=== PATIENT | male | born 1940 | race Caucasian/White ===

== ENCOUNTER 2017-01-22 09:50 | Day surgery (SDC) | payer BC, OTHER ==
[~2017-01-22 09:50] MED LIST: Lactated Ringers 1,000 ML IV SCH
--- NOTE | 2017-01-22 10:24 | PCM.PREANE ---
Preanesthetic Assessment - Anesthesia/Transfusion/Family Hx Anesthesia History: Prior Anesthesia Without Reaction Type of Anesthesia Reaction: Excessive Nausea/Vomiting Family History of Anesthesia Reaction: No Transfusion History: No Prior Transfusion(s) - Review of Systems General: No Symptoms Pulmonary: No Symptoms Cardiovascular: No Symptoms Neurological: No Symptoms Other: Reports: None - Physical Assessment NPO Status Date: 01/21/17 Height: 1.96 m Weight: 109.769 kg ASA Class: 3 Mental Status: Alert & Oriented x3 Airway Class: Mallampati = 1 Dentition: Reports: Bridge (central maxilary) ROM/Head Extension: Full Lungs: Clear to Auscultation, Normal Respiratory Effort Cardiovascular: Murmurs - Lab Values: Laboratory Last Values POC Glucose 120 mg/dL (60-110) H 01/22/17 10:13 - Allergies Allergies/Adverse Reactions: Allergies Allergy/AdvReac Type Severity Reaction Status Date / Time No Known Allergies Allergy Verified 01/20/17 11:08 - Acknowledgements Anesthesia Type Planned: MAC Pt an Appropriate Candidate for the Planned Anesthesia: Yes Alternatives and Risks of Anesthesia Discussed w Pt/Guardian: Yes Pt/Guardian Understands and Agrees with Anesthesia Plan: Yes Additional Comments: has mod MR, reentrant tachyarrythmia controlled with metopralol (last dose this am), has GERD, HTN, DM2, No symptoms of coronary disease, has had no heart cath , did have apical hypomobility 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 PreAnesthesia Questionnaire Other HEENT History: wears glasses, has upper permanent partial denture Cardiovascular History: Reports: Arrhythmia, CAD, Heart Murmur, High Cholesterol Other Cardiovascular History: moderate mitral valve regurgitation, hx of AVNRT Gastrointestinal History: Reports: Diverticulosis, GERD Genitourinary History: Reports: BPH Other Genitourinary History: just finished treatment for prostate infection Musculoskeletal History: Reports: Arthritis, Back Pain, Chronic, Fracture Other Musculoskeletal History: hx of fx ankle Endocrine/Metabolic History: Reports: Other (See Below) Other Endocrine/Metabolic History: states "pre-diabetic" Oncologic (Cancer) History: Reports: Basal Cell Carcinoma Other Oncologic History: skin cancer on left leg Dermatologic History: Reports: Other (See Below) Other Dermatologic History: currently taking antibiotics for "inflamation" on leg - Past Surgical History HEENT Surgical History: Reports: Tonsillectomy Cardiovascular Surgical History: Reports: None GI Surgical History: Reports: Colonoscopy Male Surgical History: Reports: Prostatectomy, Vasectomy, Other (See Below) Other Male Surgeries/Procedures: HX of "electrical" prostate surgery, hx of left orchiectomy (undecended) Musculoskeletal Surgical History: Reports: None - SUBSTANCE USE Smoking Status *Q: Former Smoker Tobacco Use Within Last Twelve Months: No Days Per Week of Alcohol Use: 0 Recreational Drug Use History: No - HOME MEDS Home Medications: Home Meds Aspirin [Keily Chewable] 81 mg PO DAILY 10/11/13 [History] Cholecalciferol (Vitamin D3) [Vitamin D] 1,000 unit PO DAILY 10/11/13 [History] Finasteride [Proscar] 5 mg PO DAILY 10/11/13 [History] Pantoprazole [Protonix] 40 mg PO DAILY 10/11/13 [History] atorvaSTATin [Lipitor] 20 mg PO DAILY 10/11/13 [History] Cephalexin 500 mg PO TID 01/20/17 [History] Metoprolol Tartrate 25 mg PO BID 01/20/17 [History] - CURRENT (IN HOUSE) MEDS Current Meds: Current Medications Lactated Ringer's (Ringers, Lactated) 1,000 mls @ 125 mls/hr IV ASDIRECTED [facility] Last Admin: 01/22/17 10:20 Dose: 125 mls/hr
[2017-01-22] MEDS ORDERED: Midazolam 1 MG/ML 2 ML SDV ONE (12:07)
[2017-01-22] MEDS ORDERED: Propofol 200 MG/20 ML SDV ONE ×2 (12:07→12:29)
--- NOTE | 2017-01-22 13:03 | PCM.OPNOTE ---
- General Post-Op/Procedure Note Date of Surgery/Procedure: 01/22/17 Operative Procedure(s): Colonoscopy with cold ascending and descending colon, polypectomies Pre Op Diagnosis: Change in bowel habits. Unexplained weight loss. Post-Op Diagnosis: Ascending and descending colon polyps. Sigmoid diverticulosis. Anesthesia Technique: MAC (ASA II) Primary Surgeon: Jonatan Mauro Clutch Inspector: Amarilis Goyal Condition: Good Free Text/Narrative:: Dictation [id number] CPT CODE 60966
[2017-01-22] MEDS ORDERED: Lactated Ringers 1,000 ML IV SCH (13:15)
--- NOTE | 2017-01-22 13:20 | PCM.POSTAN ---
POST ANESTHESIA ASSESSMENT - MENTAL STATUS Mental Status: Alert, Oriented - RESPIRATORY Respiratory Status: Respiratory Rate WNL, Airway Patent, O2 Saturation Stable - CARDIOVASCULAR CV Status: Pulse Rate WNL, Blood Pressure Stable - GASTROINTESTINAL GI Status: No Symptoms - PAIN Pain Score: 0 - POST OP HYDRATION Hydration Status: Adequate & Stable
[2017-01-22 14:38] VITALS: BP 136/69
--- NOTE | 2017-01-22 14:57 | PCM48HPAN ---
Post Anesthesia Note - EVALUATION WITHIN 48HRS OF ANESTHETIC Vital Signs in Normal Range: Yes Patient Participated in Evaluation: Yes Respiratory Function Stable: Yes Airway Patent: Yes Cardiovascular Function Stable: Yes Hydration Status Stable: Yes Pain Control Satisfactory: Yes Nausea and Vomiting Control Satisfactory: Yes Mental Status Recovered: Yes
--- NOTE | 2017-01-25 14:52 | OR ---
SURGEON: Jonatan Mauro M.D. DATE OF PROCEDURE: 01/22/2017 OPERATION PERFORMED: Colonoscopy with cold descending and ascending colon polypectomy. ANESTHESIA: MAC. ASA CLASSIFICATION: II. PREOPERATIVE DIAGNOSES: Change in bowel habits, unexplained weight loss. POSTOPERATIVE DIAGNOSES: Sigmoid diverticulosis, descending colon polyp, ascending colon polyp. DESCRIPTION OF PROCEDURE: The patient was taken to the endoscopy room and positioned on the endoscopy table in the left lateral decubitus position. Time-out was called for appropriate identification the patient and procedure. Monitored anesthesia care was provided. The colonoscope was inserted into the rectum and advanced with great difficulty to the cecum, where I was able to retroflex the colonoscope and visualize the ascending colon from below. The colonoscope was then straightened and slowly withdrawn. One polyp was encountered in the ascending colon and removed with the cold biopsy forceps. The remainder of the ascending colon, hepatic flexure, transverse colon, splenic flexure showed no tumors, polyps, diverticula, or angiodysplastic changes. Descending colon did demonstrate another polyp that was removed with the cold biopsy forceps. Sigmoid colon demonstrates severe diverticular change. No stricture, spasm, or bleeding was noted. No sigmoid polyps were encountered. The colonoscope was withdrawn to the rectum and retroflexed to visualize the anal orifice from above. No tumors or polyps were seen and there were no acute hemorrhoidal changes. The colonoscope was then straightened, the rectum aspirated, and the colonoscope removed. The patient tolerated the procedure well and was taken to recovery room in stable condition. VI / ROLANDO /[id number]
== END 2017-01-22 13:45 | disposition home or self-care (01) ==
LOC: MW.SDS 09:50
PROVIDERS: ATTEND Surgery
DX: D12.4 Benign neoplasm of descending colon (principal); D12.2 Benign neoplasm of ascending colon; K57.30 Diverticulosis of large intestine without perforation or abscess without bleeding; N40.0 Benign prostatic hyperplasia without lower urinary tract symptoms; I25.10 Atherosclerotic heart disease of native coronary artery without angina pectoris; K21.9 Gastro-esophageal reflux disease without esophagitis; I10 Essential (primary) hypertension; E78.00 Pure hypercholesterolemia, unspecified; E11.9 Type 2 diabetes mellitus without complications; Z79.82 Long term (current) use of aspirin; Z79.899 Other long term (current) drug therapy; Z98.890 Other specified postprocedural states; Z98.52 Vasectomy status; Z87.891 Personal history of nicotine dependence
CPT/HCPCS: 45380; 82962; 88305; J2250; J7120; 00810; J2704

== ENCOUNTER 2017-09-04 14:20 | Emergency (ER) | payer BC, OTHER ==
[2017-09-04 14:33] VITALS: BP 157/78
--- NOTE | 2017-09-04 14:56 | EDM.PDOC ---
ED HPI GENERAL MEDICAL PROBLEM - General Chief Complaint: Eye Problems Stated Complaint: VISION PROBLEMS WITH LT EYE Time Seen by Provider: 09/04/17 14:48 Source of Information: Reports: Patient History Limitations: Reports: No Limitations - History of Present Illness INITIAL COMMENTS - FREE TEXT/NARRATIVE: HISTORY AND PHYSICAL: []77-year-old gentleman presenting with history of blurring vision to the left eye and difficulty with driving History of Present Illness: []Now complaining of pain behind his right thigh which has been intermittent Review of Systems: As per history of present illness and below otherwise all systems reviewed and negative. Past medical history: As per history of present illness and as reviewed below otherwise noncontributory. Surgical history: As per history of present illness and as reviewed below otherwise noncontributory. Social history: No reported history of drug or alcohol abuse. Family history: As per history of present illness and as reviewed below otherwise noncontributory. Physical exam: Alert and oriented gentleman accompanied by his answering questions appropriately in full sentences without any shortness of breath.No neurological deficits were noted. PERRLA HEENT: Atraumatic, normocehpalic, pupils reactive, negative for conjunctival pallor or scleral icterus, mucous membranes moist, throat clear, neck supple, nontender, trachea midline. Lungs: Clear to auscultation, breath sounds equal bilaterally, chest non tender. Heart: S1S2, regular, negative for clicks, rubs, or JVD. Abdomen: Soft, nondistended, nontender. Negative for masses or hepatossplenmegaly. Negative for costovertebral tenderness. Pelvis: Stable nontender. Genitourinary: Deferred. Rectal: Deferred Extremities: Atraumatic, negative for cords or calf pain. Neurovascular unremarkable. Neuro: Awake, alert, oriented. Cranial nerves II through XII unremarkable. Cerebellum unremarkable. Motor and sensory unremarkable throughout. Exam nonfocal. Discussed the results of the head CT with patient and gross abnormalities have been noted on his examination or testing completed here Increased vision noted 2 left eye on Snellen examellen 20/70 Discussed this case with Dr. Blaine Delgado who is in agreement that this may wait until Wednesday(2 days)If this is not improved by that time he needs to be seen by his brake engineer or supervisor nuclear medicine Diagnostics: [head CT] Therapeutics: [] Impression: [Transient visual changes] Plan: []Discharged home Follow up with your PCP/Eye Dr. Definitive disposition and diagnosis as appropriate pending reevaluation and review of above. Onset: Today, Sudden Duration: Hour(s): Location: Reports: Head R eye Pain Score (Numeric/FACES): 3 - Related Data Allergies Allergy/AdvReac Type Severity Reaction Status Date / Time No Known Allergies Allergy Verified 09/04/17 14:33 Home Meds: Home Meds Finasteride [Proscar] 5 mg PO DAILY 10/11/13 [History] Pantoprazole [Protonix] 40 mg PO DAILY 10/11/13 [History] atorvaSTATin [Lipitor] 20 mg PO DAILY 10/11/13 [History] Metoprolol Tartrate 25 mg PO BID 01/20/17 [History] Past Medical History Other HEENT History: wears glasses, has upper permanent partial denture Cardiovascular History: Reports: Arrhythmia, CAD, Heart Murmur, High Cholesterol Other Cardiovascular History: moderate mitral valve regurgitation, hx of AVNRT Gastrointestinal History: Reports: Diverticulosis, GERD Genitourinary History: Reports: BPH Other Genitourinary History: just finished treatment for prostate infection Musculoskeletal History: Reports: Arthritis, Back Pain, Chronic, Fracture Other Musculoskeletal History: hx of fx ankle Endocrine/Metabolic History: Reports: Other (See Below) Other Endocrine/Metabolic History: states "pre-diabetic" Oncologic (Cancer) History: Reports: Basal Cell Carcinoma Other Oncologic History: skin cancer on left leg Dermatologic History: Reports: Other (See Below) Other Dermatologic History: currently taking antibiotics for "inflamation" on leg - Past Surgical History HEENT Surgical History: Reports: Tonsillectomy Cardiovascular Surgical History: Reports: None GI Surgical History: Reports: Colonoscopy Male Surgical History: Reports: Prostatectomy, Vasectomy, Other (See Below) Other Male Surgeries/Procedures: HX of "electrical" prostate surgery, hx of left orchiectomy (undecended) Musculoskeletal Surgical History: Reports: None Social & Family History - Family History Family Medical History: Noncontributory - Tobacco Use Smoking Status *Q: Never Smoker Years of Tobacco use: 25 Second Hand Smoke Exposure: No - Caffeine Use Caffeine Use: Reports: Coffee, Tea - Alcohol Use Days Per Week of Alcohol Use: 7 Number of Drinks Per Day: 2 Total Drinks Per Week: 14 - Recreational Drug Use Recreational Drug Use: No Drug Use in Last 12 Months: No ED ROS GENERAL - Review of Systems Review Of Systems: ROS reveals no pertinent complaints other than HPI. ED EXAM GENERAL W FULL EYE - Physical Exam Exam: See Below (see dictation) Course - Vital Signs Last Recorded V/S: Last Vital Signs Temp 36.4 C 09/04/17 14:30 Pulse 65 09/04/17 14:30 Resp 18 09/04/17 14:30 BP 157/78 H 09/04/17 14:30 Pulse Ox 96 09/04/17 14:30 Departure - Departure Time of Disposition: 16:04 Disposition: Home, Self-Care 01 Condition: Good Clinical Impression: Blurring of vision - Discharge Information Referrals: Dwight Joshi MD [Primary Care Provider] - Additional Instructions: The following information is given to patients seen in the emergency department who are being discharged to home. This information is to outline your options for follow-up care. We provide all patients seen in our emergency department with a follow-up referral. The need for follow-up, as well as the timing and circumstances, are variable depending upon the specifics of your emergency department visit. If you don't have a primary care physician on staff, we will provide you with a referral. We always advise you to contact your personal physician following an emergency department visit to inform them of the circumstance of the visit and for follow-up with them and/or the need for any referrals to a consulting specialist. The emergency department will also refer you to a specialist when appropriate. This referral assures that you have the opportunity for followup care with a specialist. All of these measure are taken in an effort to provide you with optimal care, which includes your followup. Under all circumstances we always encourage you to contact your private physician who remains a resource for coordinating your care. When calling for followup care, please make the office aware that this follow-up is from your recent emergency room visit. If for any reason you are refused follow-up, please contact the [facility] emergency department at and asked to speak to the emergency department charge nurse. Left with your brake engineer/supervisor nuclear medicine on Wednesday if not improved Use liquid tears available [id number] Return to the emergency room should you have any change in symptomology as discussed and directed
--- NOTE | 2017-09-06 11:40 | CT ---
EXAM DATE: 09/04/17 PATIENT'S AGE: 77 Patient: PETRA PRUITT Facility: [place], [place] Site . Site : [id number] Study: CT Head [id number]/[id number] 3:16:04 PM Ordering Physician: Doctor Álvarez Final Report: HISTORY: Left-sided headache, blurry vision. TECHNIQUE: Noncontrast head CT. COMPARISON: MRI 04/08/2009. Head CT 04/05/2009. FINDINGS: Increased moderate generalized volume loss. There is no acute ischemic infarct or acute intracranial hemorrhage. No mass effect or midline shift. No hydrocephalus. No acute loss of callejas-white differentiation. The mastoid air cells are clear on the right. There is opacification of a few posterior inferior mastoid air cells on the left. Mucosal thickening right maxillary sinus. Opacification of the included portion of the left maxillary sinus. No skull fracture. IMPRESSION: 1. Progressive moderate generalized volume loss. 2. No acute intracranial hemorrhage or acute ischemic infarct. Dictated by Owen Wadsworth MD @ 09/04/2017 3:29:07 PM Please note that all CT scans at this facility use dose modulation, iterative reconstruction, and/or weight-based dosing when appropriate to reduce radiation dose to as low as reasonably achievable. Dictated by: Owen Wadsworth MD @ 09/04/2017 15:29:30 (Electronic Signature) Report Signed by Proxy. [facility]
== END 2017-09-04 16:35 | disposition home or self-care (01) ==
LOC: MW.ED 14:20
DX: H53.8 Other visual disturbances (principal); E78.00 Pure hypercholesterolemia, unspecified; K21.9 Gastro-esophageal reflux disease without esophagitis; M19.90 Unspecified osteoarthritis, unspecified site; Z79.899 Other long term (current) drug therapy
CPT/HCPCS: 70450; 70450-26; 82962; 99284-25

== ENCOUNTER 2020-11-01 18:40 | Emergency (ER) | payer BC, OTHER ==
--- NOTE | 2020-11-01 19:31 | EDM.PDOC ---
ED HPI GENERAL MEDICAL PROBLEM - General Chief Complaint: Upper Extremity Injury/Pain Stated Complaint: FELL AT [facility] Time Seen by Provider: 11/01/20 19:05 Source of Information: Reports: Patient History Limitations: Reports: No Limitations - History of Present Illness INITIAL COMMENTS - FREE TEXT/NARRATIVE: 80M PMHx anticoagulant use presents for fall. Patient tripped over boxes on ground at grocery store. He landed on his L knee and arm. He has ambulated after fall but notes pain and swelling in L wrist and knee. He also notes a toenail injury to R great toe. Denies neck or head pain. Didn't hit head. No LOC. right wrist Pain Score (Numeric/FACES): 7 - Related Data Allergies Allergy/AdvReac Type Severity Reaction Status Date / Time No Known Allergies Allergy Verified 11/01/20 19:00 Home Meds: Home Meds Finasteride [Proscar] 5 mg PO DAILY 10/11/13 [History] atorvaSTATin [Lipitor] 20 mg PO DAILY 10/11/13 [History] Metoprolol Tartrate 25 mg PO BID 01/20/17 [History] Apixaban [Eliquis] 1 tab PO Q12HR 10/28/20 [History] Cholecalciferol (Vitamin D3) [Vitamin D] 1 tab PO DAILY 10/28/20 [History] Multivitamin [Multi-Vitamin Daily] 1 tab PO 10/28/20 [History] Tretinoin/Emollient Base [Tretinoin 0.05% Emollient Crm] 1 applic TOP ASDIRECTED 10/28/20 [History] Past Medical History HEENT History: Reports: Impaired Vision Other HEENT History: wears glasses, has upper permanent partial denture Cardiovascular History: Reports: Arrhythmia, CAD, Heart Murmur, High Cholesterol Other Cardiovascular History: moderate mitral valve regurgitation, hx of AVNRT Respiratory History: Reports: None Gastrointestinal History: Reports: Diverticulosis, GERD Other Gastrointestinal History: occasional heartburn Genitourinary History: Reports: BPH Musculoskeletal History: Reports: Arthritis, Back Pain, Chronic, Fracture Other Musculoskeletal History: hx of fx ankle Neurological History: Reports: TIA Psychiatric History: Reports: None Endocrine/Metabolic History: Reports: Diabetes, Type II Hematologic History: Reports: None Immunologic History: Reports: None Oncologic (Cancer) History: Reports: Basal Cell Carcinoma, Squamous Cell Carcinoma Other Oncologic History: states had skin cancer on face, neck, legs and back and has had surgeries to remove it Dermatologic History: - Infectious Disease History Infectious Disease History: Reports: Chicken Pox, Mumps - Past Surgical History Head Surgeries/Procedures: Reports: None HEENT Surgical History: Reports: Tonsillectomy Cardiovascular Surgical History: Reports: None Respiratory Surgical History: Reports: None GI Surgical History: Reports: Colonoscopy, Polypectomy Male Surgical History: Reports: Prostatectomy, Vasectomy, Other (See Below) Other Male Surgeries/Procedures: HX of "electrical" prostate surgery, hx of left orchiectomy (undecended) Endocrine Surgical History: Reports: None Musculoskeletal Surgical History: Reports: None Other Oncologic Surgeries/Procedures: had surgeries to remove skin cancer on face, neck, legs and back Social & Family History - Family History Family Medical History: No Pertinent Family History - Caffeine Use Caffeine Use: Reports: None - Recreational Drug Use Recreational Drug Use: No Review of Systems - Review of Systems Review Of Systems: Comprehensive ROS is negative, except as noted in HPI. ED EXAM, GENERAL - Physical Exam Exam: See Below Exam Limited By: No Limitations General Appearance: Alert, WD/WN, No Apparent Distress Ears: Hearing Grossly Normal Throat/Mouth: Normal Voice, No Airway Compromise Head: Atraumatic, Normocephalic Neck: Normal Inspection, Supple, Non-Tender Respiratory/Chest: No Respiratory Distress, No Accessory Muscle Use Cardiovascular: Normal Peripheral Pulses Extremities: Other (swelling, ecchymosis, TTP of dorsum of L wrist with preserved medical billing assistant strength, swelling/ecchymosis of L suprapatellar knee and TTP of distal anterior knee, abrasion to R great toe with distal toenail avulsion injury, no nailbed injury) Neurological: Alert, Normal Cognition, Normal Gait Psychiatric: Normal Affect, Normal Mood Skin Exam: Warm, Dry, Intact, Normal Color Course - Vital Signs Last Recorded V/S: Last Vital Signs Temp 98 F 11/01/20 18:55 Pulse 62 11/01/20 18:55 Resp 16 11/01/20 18:55 BP 144/65 H 11/01/20 18:55 Pulse Ox 96 11/01/20 18:55 - Orders/Labs/Meds Orders: Active Orders 24 hr Category Date Time Status Splinting [RC] ASDIRECTED Care 11/01/20 19:40 Active - Re-Assessments/Exams Free Text/Narrative Re-Assessment/Exam: 11/01/20 19:29 Will get XR imaging of L wrist and knee to insure no fracture. Will bandage R great toe 11/01/20 19:42 XR imaging of knee shows small joint effusion but no bony abnormality. XR imaging of L wrist shows possible subtle fracture of waist of scaphoid. Will apply cock-up splint and recommend orthopedic f/u Departure - Departure Time of Disposition: 19:43 Disposition: Home, Self-Care 01 Condition: Good Clinical Impression: Knee effusion, left Scaphoid fracture Qualifiers: Encounter type: initial encounter Scaphoid bone location: unspecified portion of scaphoid Fracture type: closed Fracture alignment: nondisplaced Laterality: left Qualified Code(s): S62.002A - Unspecified fracture of navicular [scaphoid] bone of left wrist, initial encounter for closed fracture - Discharge Information Instructions: Scaphoid Fracture, Knee Effusion, [id number] Referrals: Dwight Joshi MD [Primary Care Provider] - Forms: ED Department Discharge Additional Instructions: Your x-ray of your knee shows a small joint effusion but no evidence of fracture or dislocation. The x-ray of your wrist shows possible small subtle fracture of the scaphoid which is a small bone in the wrist. It is often hard to tell on x- ray imaging if there is actually a fracture of the scaphoid but when we are suspicious we put on a splint and have you follow-up with orthopedics in about 1 week to be reassessed. You can take off the splint when you are taking a shower but should otherwise wear it to prevent further damage if there is a scaphoid fracture. We will place you on the orthopedic follow-up list but the numbers also provided below if they do not reach out to you. [facility] [address] [place] [address], [address] [place], [place] [phone] The following information is given to patients seen in the emergency department who are being discharged to home. This information is to outline your options f or follow-up care. We provide all patients seen in our emergency department with a follow-up referral. The need for follow-up, as well as the timing and circumstances, are variable depending upon the specifics of your emergency department visit. If you don't have a primary care physician on staff, we will provide you with a referral. We always advise you to contact your personal physician following an emergency department visit to inform them of the circumstance of the visit and for follow-up with them and/or the need for any referrals to a consulting specialist. The emergency department will also refer you to a specialist when appropriate. This referral assures that you have the opportunity for follow-up care with a specialist. All of these measure are taken in an effort to provide you with optimal care, which includes your follow-up. Under all circumstances we always encourage you to contact your private physician who remains a resource for coordinating your care. When calling for follow-up care, please make the office aware that this follow-up is from your recent emergency room visit. If for any reason you are refused follow-up, please contact the [facility] Emergency Department at and asked to speak to the emergency department charge nurse. Please follow up with your primary care physician. If you do not have a primary care physician, see below: [facility] [address] [place] [phone] [facility] [address] [place] [id number] [facility] [address] [place] [id number] Sepsis Event Note (ED) - Evaluation Sepsis Screening Result: No Definite Risk - Focused Exam Vital Signs: Vital Signs Temp Pulse Resp BP Pulse Ox 11/01/20 18:55 98 F 62 16 144/65 H 96 - My Orders Last 24 Hours: My Active Orders 11/01/20 19:40 Splinting [RC] ASDIRECTED - Assessment/Plan Last 24 Hours: My Active Orders 11/01/20 19:40 Splinting [RC] ASDIRECTED
--- NOTE | 2020-11-01 19:39 | CR ---
Indication: Fall. Technique: Three views of the left wrist. Comparison: None Findings: Degenerative changes of the left wrist are identified. A subtle fracture of the waist of the scaphoid cannot be completely excluded. No other fractures are identified. Impression: Cannot completely exclude a fracture of the waist of the scaphoid. Dictated by Nickie Ellis MD @ 11/01/2020 7:38:[address] Nickie Ellis @ Nov 01 2020 7:38PM
--- NOTE | 2020-11-01 19:41 | CR ---
Indication: Follow-up. Technique: Three views of the left knee. Comparison: None Findings: Moderate narrowing of the medial lateral compartments are identified. A small joint effusion is identified. Narrowing of the patellofemoral articulation is identified. Impression: Degenerative change. No acute Dictated by Nickie Ellis MD @ 11/01/2020 7:40:[address] Nickie Ellis @ Nov 01 2020 7:40PM
[2020-11-01 20:05] VITALS: BP 141/84; PULSE 72
== END 2020-11-01 20:07 | disposition home or self-care (01) ==
LOC: MW.ED 18:40
DX: S92.255A Nondisplaced fracture of navicular [scaphoid] of left foot, initial encounter for closed fracture (principal); M25.462 Effusion, left knee; I25.10 Atherosclerotic heart disease of native coronary artery without angina pectoris; E78.00 Pure hypercholesterolemia, unspecified; N40.0 Benign prostatic hyperplasia without lower urinary tract symptoms; E11.9 Type 2 diabetes mellitus without complications; Z79.01 Long term (current) use of anticoagulants; Z79.899 Other long term (current) drug therapy; Z86.73 Personal history of transient ischemic attack (TIA), and cerebral infarction without residual deficits; W01.0XXA Fall on same level from slipping, tripping and stumbling without subsequent striking against object, initial encounter; Y92.512 Supermarket, store or market as the place of occurrence of the external cause
CPT/HCPCS: 73110-26-LT; 73110-LT; 73562-26-LT; 73562-LT; 99283; 99283-25

== ENCOUNTER 2020-11-15 07:29 | Day surgery (SDC) | payer BC, OTHER ==
[~2020-11-15 07:29] MED LIST changes: +propofoL 50 ML ONE
[2020-11-15] MEDS ORDERED: Lidocaine 2% 5 ML SDV ONE (07:57)
[2020-11-15] MEDS ORDERED: Ondansetron 4 MG/2 ML SDV ONE (07:57)
--- NOTE | 2020-11-15 08:08 | PCM.PREANE ---
Preanesthetic Assessment - Anesthesia/Transfusion/Family Hx Anesthesia History: Prior Anesthesia Without Reaction Family History of Anesthesia Reaction: No Transfusion History: No Prior Transfusion(s) Intubation History: Unknown - Review of Systems General: No Symptoms Pulmonary: No Symptoms Cardiovascular: No Symptoms Gastrointestinal: No Symptoms Neurological: No Symptoms Other: Reports: None - Physical Assessment NPO Status Date: 11/15/20 NPO Status Time: 00:00 Height: 6 ft 5 in Weight: 245 lb ASA Class: 3 Airway Class: Mallampati = 2 Dentition: Reports: Edentulous, Missing Tooth/Teeth ROM/Head Extension: Full Lungs: Clear to Auscultation, Normal Respiratory Effort Cardiovascular: Regular Rate, Regular Rhythm - Allergies Allergies/Adverse Reactions: Allergies Allergy/AdvReac Type Severity Reaction Status Date / Time No Known Allergies Allergy Verified 11/01/20 19:00 - Anesthesia Plan Beta Sanchez: Metoprolol - Acknowledgements Anesthesia Type Planned: General Anesthesia Pt an Appropriate Candidate for the Planned Anesthesia: Yes Alternatives and Risks of Anesthesia Discussed w Pt/Guardian: Yes Pt/Guardian Understands and Agrees with Anesthesia Plan: Yes PreAnesthesia Questionnaire HEENT History: Reports: Impaired Vision Other HEENT History: wears glasses, has upper permanent partial denture Cardiovascular History: Reports: Arrhythmia, CAD, Heart Murmur, High Cholesterol Other Cardiovascular History: moderate mitral valve regurgitation, hx of AVNRT Respiratory History: Reports: None Gastrointestinal History: Reports: Diverticulosis, GERD Other Gastrointestinal History: occasional heartburn Genitourinary History: Reports: BPH Musculoskeletal History: Reports: Arthritis, Back Pain, Chronic, Fracture Other Musculoskeletal History: hx of fx ankle Neurological History: Reports: TIA Psychiatric History: Reports: None Endocrine/Metabolic History: Reports: Diabetes, Type II Hematologic History: Reports: None Immunologic History: Reports: None Oncologic (Cancer) History: Reports: Basal Cell Carcinoma, Squamous Cell Carcinoma Other Oncologic History: states had skin cancer on face, neck, legs and back and has had surgeries to remove it Dermatologic History: - Infectious Disease History Infectious Disease History: Reports: Chicken Pox, Mumps - Past Surgical History Head Surgeries/Procedures: Reports: None HEENT Surgical History: Reports: Tonsillectomy Cardiovascular Surgical History: Reports: None Respiratory Surgical History: Reports: None GI Surgical History: Reports: Colonoscopy, Polypectomy Male Surgical History: Reports: Prostatectomy, Vasectomy, Other (See Below) Other Male Surgeries/Procedures: HX of "electrical" prostate surgery, hx of left orchiectomy (undecended) Endocrine Surgical History: Reports: None Musculoskeletal Surgical History: Reports: None Other Oncologic Surgeries/Procedures: had surgeries to remove skin cancer on face, neck, legs and back - SUBSTANCE USE Tobacco Use Status *Q: Former Tobacco User - HOME MEDS Home Medications: Home Meds Finasteride [Proscar] 5 mg PO DAILY 10/11/13 [History] atorvaSTATin [Lipitor] 20 mg PO DAILY 10/11/13 [History] Metoprolol Tartrate 25 mg PO BID 01/20/17 [History] Apixaban [Eliquis] 1 tab PO Q12HR 10/28/20 [History] Cholecalciferol (Vitamin D3) [Vitamin D] 1 tab PO DAILY 10/28/20 [History] Multivitamin [Multi-Vitamin Daily] 1 tab PO 10/28/20 [History] Tretinoin/Emollient Base [Tretinoin 0.05% Emollient Crm] 1 applic TOP ASDIRECTED 10/28/20 [History] - CURRENT (IN HOUSE) MEDS Current Meds: Current Medications Lactated Ringer's (Ringers, Lactated) 1,000 mls @ 125 mls/hr IV ASDIRECTED BILLY Discontinued Medications Propofol (Diprivan 50 Ml) Confirm Administered Dose 50 mls @ as directed .ROUTE .STK-MED ONE Stop: 11/15/20 06:58 Lidocaine (Lidocaine 2% 5 Ml Sdv) Confirm Administered Dose 5 ml .ROUTE .STK-MED ONE Stop: 11/15/20 07:58 Ondansetron HCl (Ondansetron 4 Mg/2 Ml Sdv) Confirm Administered Dose 4 mg .ROUTE .STK-MED ONE Stop: 11/15/20 07:58
--- NOTE | 2020-11-15 09:19 | PCM.OPNOTE ---
- General Post-Op/Procedure Note Date of Surgery/Procedure: 11/15/20 Operative Procedure(s): Colonoscopy with mid and distal transverse colon cold polypectomies Pre Op Diagnosis: Personal history of colon polyps. Post-Op Diagnosis: Mid and distal transverse colon polyps. Sigmoid diverticulosis. Anesthesia Technique: MAC (ASA III) Primary Surgeon: Jonatan Mauro Condition: Good Free Text/Narrative:: DICTATION [id number] CPT CODE [id number]
--- NOTE | 2020-11-15 09:25 | PCM48HPAN ---
Post Anesthesia Note - EVALUATION WITHIN 48HRS OF ANESTHETIC Vital Signs in Normal Range: Yes Patient Participated in Evaluation: Yes Respiratory Function Stable: Yes Airway Patent: Yes Cardiovascular Function Stable: Yes Hydration Status Stable: Yes Pain Control Satisfactory: Yes Nausea and Vomiting Control Satisfactory: Yes Mental Status Recovered: Yes Vital Signs: Last Vital Signs Temp 97.3 F 11/15/20 08:17 Pulse 78 11/15/20 08:17 Resp 15 11/15/20 08:17 BP 146/74 H 11/15/20 08:17 Pulse Ox 96 11/15/20 08:17
--- NOTE | 2020-11-15 09:25 | PCM.POSTAN ---
POST ANESTHESIA ASSESSMENT - MENTAL STATUS Mental Status: Alert, Oriented - VITAL SIGNS Vital Signs: Last Vital Signs Temp 97.3 F 11/15/20 08:17 Pulse 78 11/15/20 08:17 Resp 15 11/15/20 08:17 BP 146/74 H 11/15/20 08:17 Pulse Ox 96 11/15/20 08:17 - RESPIRATORY Respiratory Status: Respiratory Rate WNL, Airway Patent, O2 Saturation Stable - CARDIOVASCULAR CV Status: Pulse Rate WNL, Blood Pressure Stable - GASTROINTESTINAL GI Status: No Symptoms - POST OP HYDRATION Hydration Status: Adequate & Stable
[2020-11-15] MEDS ORDERED: Lactated Ringers 1,000 ML IV SCH (09:30)
--- NOTE | 2020-11-15 12:45 | OR ---
SURGEON: Jonatan Mauro M.D. DATE OF PROCEDURE: 11/15/2020 OPERATION PERFORMED: Colonoscopy with cold mid and distal transverse colon polypectomy. PRIMARY SURGEON: Jonatan Mauro MD ANESTHESIA: MAC. ASA CLASSIFICATION: III. PREOPERATIVE DIAGNOSIS: Personal history of colon polyps. POSTOPERATIVE DIAGNOSES: 1. Mid transverse colon polyp. 2. Distal transverse colon polyp. 3. Sigmoid diverticulosis. DESCRIPTION OF PROCEDURE: The patient was taken to the endoscopy room and positioned on the endoscopy table in the left lateral decubitus position. Time-out was called for appropriate identification of patient and procedure. Monitored anesthesia care was provided. The colonoscope was inserted into the rectum and advanced with moderate difficulty to the cecum. The cecum was identified by internal landmarks and external pressure. I was not able to retroflex the colonoscope in the cecum. The colonoscope was then slowly withdrawn. The cecum and ascending colon, hepatic flexure, and proximal transverse colon showed no tumors, polyps, diverticula, or angiodysplastic changes. Two small polyps were encountered in the transverse colon, one in the midportion and one in the distal portion. These were serially removed and sent individually for histologic analysis. The splenic flexure and descending colon showed no tumors, polyps, diverticula, or angiodysplastic changes. Moderate diverticular disease was noted in the sigmoid colon. No stricture, spasm, or bleeding was noted and there was no evidence of inflammation. The colonoscope was then withdrawn to the rectum and retroflexed to visualize the anal orifice from above. No tumors, polyps, or acute hemorrhoidal changes were noted. The colonoscope was then straightened, the rectum aspirated, and the colonoscope removed. The patient tolerated the procedure well and was taken to recovery room in stable condition. VI / ROLANDO /[id number]
[2020-11-15 12:48] VITALS: BP 122/58; PULSE 58
== END 2020-11-15 10:10 | disposition home or self-care (01) ==
LOC: MW.SDS 07:29
PROVIDERS: ATTEND Surgery
DX: D12.3 Benign neoplasm of transverse colon (principal); K57.30 Diverticulosis of large intestine without perforation or abscess without bleeding; E11.9 Type 2 diabetes mellitus without complications; I25.10 Atherosclerotic heart disease of native coronary artery without angina pectoris; I10 Essential (primary) hypertension; I47.1 Supraventricular tachycardia; D49.9 Neoplasm of unspecified behavior of unspecified site; G13.0 Paraneoplastic neuromyopathy and neuropathy; M19.90 Unspecified osteoarthritis, unspecified site; E78.00 Pure hypercholesterolemia, unspecified; Z86.010 Personal history of colon polyps; Z87.19 Personal history of other diseases of the digestive system; Z80.3 Family history of malignant neoplasm of breast; Z86.73 Personal history of transient ischemic attack (TIA), and cerebral infarction without residual deficits; Z87.891 Personal history of nicotine dependence
CPT/HCPCS: 45380; 88305; J2405; J2704; J7120

== ENCOUNTER 2022-10-01 06:59 | Emergency (ER) | payer OTHER, BC ==
[2022-10-01] MEDS ORDERED: Lidocaine 4% 1 each Patch TOP STA (07:34)
[2022-10-01] MEDS ORDERED: Acetaminophen 325 MG Tab PO ONE (07:34)
[2022-10-01 08:58] VITALS: BP 114/62; PULSE 75
== END 2022-10-01 08:57 | disposition home or self-care (01) ==
LOC: MW.ED 06:59
DX: M25.562 Pain in left knee (principal); I48.91 Unspecified atrial fibrillation; I25.10 Atherosclerotic heart disease of native coronary artery without angina pectoris; E11.9 Type 2 diabetes mellitus without complications; Z86.73 Personal history of transient ischemic attack (TIA), and cerebral infarction without residual deficits; Z79.01 Long term (current) use of anticoagulants; Z79.899 Other long term (current) drug therapy
CPT/HCPCS: 73552; 73562; 99283; A9270

== ENCOUNTER 2022-10-02 09:04 | Observation (INO) | payer MEDICARE, BC, OTHER ==
[2022-10-02 09:37] LABS: BASOPHILS PERCENT AUTO 0.2 % (0.0-1.5); EOSINOPHILS ABSOLUTE AUTO 0.1 K/uL (0.0-0.7); HEMATOCRIT 35.2 % (38.0-50.0); HEMOGLOBIN 12.3 g/dL (13.0-17.0); LYMPHOCYTES ABSOLUTE AUTO 1.3 K/uL (0.6-2.4); LYMPHOCYTES PERCENT AUTO 13.3 % (16.0-40.0); MEAN CORPUSCULAR HEMOGLOBIN 33.4 pg (27.0-32.0); MEAN CORPUSCULAR HGB CONC 34.9 g/dL (31.0-37.0); MEAN CORPUSCULAR VOLUME 95.7 fL (80.0-98.0); MONOCYTES ABSOLUTE AUTO 0.9 K/uL (0.0-0.8); MONOCYTES PERCENT AUTO 9.4 % (0.0-15.0); NEUTROPHILS ABSOLUTE AUTO 7.5 K/uL (1.4-5.7); NEUTROPHILS PERCENT AUTO 76.1 % (48.0-80.0); NRBC ABSOLUTE 0 K/uL; PLATELET COUNT,PLT 162 K/uL (150-400); RED BLOOD CELL COUNT 3.68 M/uL (4.50-5.90); WHITE BLOOD CELL COUNT,WBC 9.86 K/uL (4.0-11.0)
[2022-10-02 09:49] LABS: INR 0.99 (0.86-1.11); PTT,PARTIAL THROMBOPLSTIN TIME 30.6 SEC (23.9-30.7)
[2022-10-02 10:03] LABS: A/G RATIO 1.2 (0.9-1.6); ALBUMIN 3.3 g/dL (3.4-5.0); BILIRUBIN TOTAL 0.9 mg/dL (0.2-1.0); CALCIUM 8.2 mg/dL (8.5-10.1); CARBON DIOXIDE,CO2 24.7 mmol/L (21.0-32.0); EST CRCL DRUG DOSING (CG) 72.33 mL/min; PROTEIN TOTAL,TP 6.1 g/dL (6.4-8.2)
[2022-10-02] MEDS ORDERED: Morphine 4 MG/ML Syringe IVPUSH ONE (10:10)
[2022-10-02] MEDS ORDERED: Iopamidol 755 MG/ML 500 ML Multipack Bottle IVPUSH ONE (11:12)
[2022-10-02] MEDS ORDERED: Sodium Chloride 0.9% 10 ML Syringe FLUSH PRN (15:52)
[2022-10-02] MEDS ORDERED: oxyCODONE 5 MG Tab PO PRN (15:52)
[2022-10-02] MEDS ORDERED: Sodium Chloride 0.9% 2.5 ML Syringe FLUSH PRN (15:52)
[2022-10-02] MEDS ORDERED: Docusate Sodium 100 MG Cap PO PRN (15:52)
[2022-10-02] MEDS ORDERED: Glucagon,Human Recombinant 1 MG Vial IM PRN (16:08)
[2022-10-02] MEDS ORDERED: 50% Dextrose in Water 50 ML Syringe IVPUSH PRN (16:08)
[2022-10-02] MEDS: Insulin Aspart 100 Units/ML 3 ML Pen SUBCUT SCH (18:34)
[2022-10-02] MEDS: Acetaminophen 325 MG Tab PO PRN (20:35)
[2022-10-02] MEDS: Metoprolol Tartrate 25 MG Tab PO SCH (20:55)
[2022-10-02] MEDS ORDERED: atorvaSTATin 20 MG Tab PO SCH (21:00)
[2022-10-03 06:01] LABS: BASOPHILS PERCENT AUTO 0.2 % (0.0-1.5); EOSINOPHILS ABSOLUTE AUTO 0.1 K/uL (0.0-0.7); EOSINOPHILS PERCENT AUTO 1.1 % (0.0-7.0); HEMATOCRIT 33.1 % (38.0-50.0); HEMOGLOBIN 11.2 g/dL (13.0-17.0); LYMPHOCYTES ABSOLUTE AUTO 1.5 K/uL (0.6-2.4); LYMPHOCYTES PERCENT AUTO 14.3 % (16.0-40.0); MEAN CORPUSCULAR HEMOGLOBIN 32.5 pg (27.0-32.0); MEAN CORPUSCULAR HGB CONC 33.8 g/dL (31.0-37.0); MEAN CORPUSCULAR VOLUME 95.9 fL (80.0-98.0); MONOCYTES ABSOLUTE AUTO 1.1 K/uL (0.0-0.8); MONOCYTES PERCENT AUTO 10.9 % (0.0-15.0); NEUTROPHILS ABSOLUTE AUTO 7.5 K/uL (1.4-5.7); NEUTROPHILS PERCENT AUTO 73.5 % (48.0-80.0); NRBC ABSOLUTE 0 K/uL; PLATELET COUNT,PLT 160 K/uL (150-400); RED BLOOD CELL COUNT 3.45 M/uL (4.50-5.90); WHITE BLOOD CELL COUNT,WBC 10.24 K/uL (4.0-11.0)
[2022-10-03 06:20] LABS: CALCIUM 8.1 mg/dL (8.5-10.1); CARBON DIOXIDE,CO2 27.2 mmol/L (21.0-32.0); CREATININE 0.8 mg/dL (0.8-1.3); EST CRCL DRUG DOSING (CG) 90.42 mL/min
[2022-10-03] MEDS: Insulin Aspart 100 Units/ML 3 ML Pen SUBCUT SCH (07:27)
[2022-10-03] MEDS: Acetaminophen 325 MG Tab PO PRN (08:59)
[2022-10-03] MEDS ORDERED: Cholecalciferol (Vitamin D3) 25 MCG Tab PO SCH (09:00)
[2022-10-03] MEDS ORDERED: Finasteride 5 MG Tab PO SCH (09:00)
[2022-10-03] MEDS: Metoprolol Tartrate 25 MG Tab PO SCH (09:00)
[2022-10-03 11:29] VITALS: BP 117/63; PULSE 60
== END 2022-10-03 11:45 | disposition home or self-care (01) ==
LOC: MW.ED 09:04 → MW.MS 15:25
PROVIDERS: ADMIT Internal Medicine; ATTEND Internal Medicine
DX: M79.81 Nontraumatic hematoma of soft tissue (principal); M25.462 Effusion, left knee; N40.0 Benign prostatic hyperplasia without lower urinary tract symptoms; I48.0 Paroxysmal atrial fibrillation; M19.90 Unspecified osteoarthritis, unspecified site; I25.10 Atherosclerotic heart disease of native coronary artery without angina pectoris; E78.5 Hyperlipidemia, unspecified; K21.9 Gastro-esophageal reflux disease without esophagitis; E11.9 Type 2 diabetes mellitus without complications; Z79.01 Long term (current) use of anticoagulants; Z79.899 Other long term (current) drug therapy; Z79.891 Long term (current) use of opiate analgesic; Z79.4 Long term (current) use of insulin; Z79.84 Long term (current) use of oral hypoglycemic drugs; Z90.09 Acquired absence of other part of head and neck; Z86.73 Personal history of transient ischemic attack (TIA), and cerebral infarction without residual deficits
CPT/HCPCS: 36415; 73706; 80048; 80053; 82947; 85025; 85610; 85730; 86850; 86900; 86901; 93005; 96374; 99284; A9270; G0378; J2270; Q9967; 93010